=== PATIENT | female | born 1960 | race Caucasian/White ===

== ENCOUNTER 2017-11-08 21:43 | Inpatient (IN) | payer OTHER ==
[~2017-11-08] VITALS: Ht 165.1 cm; Wt 105.2 kg
--- NOTE | 2017-11-08 21:47 | ED SYNCOPE COMPLAINT ---
History of Present Illness General Chief Complaint: Syncope and Near-Syncope Stated Complaint: BIBA SYNCOPE Source: patient, family, EMS Exam Limitations: no limitations Vital Signs & Intake/Output Vital Signs & Intake/Output Vital Signs Date Time Temp Pulse Resp B/P B/P Pulse O2 O2 Flow FiO2 Mean Ox Delivery Rate 11/084 Room Air 11/08 2200 97.8 70 20 109/55 97 Room Air ED Intake and Output 11/09 0000 11/08 1200 Intake Total Output Total Balance Patient 240 lb Weight Weight Reported by Patient Measurement Method Allergies Coded Allergies: No Known Allergies (11/08/17) Reconcile Medications Atorvastatin Calcium 40 MG TABLET 1 TAB PO DAILY HLD (Reported) Desvenlafaxine Succinate (Pristiq ER) 50 MG TAB.ER.24H 1 TAB PO DAILY DEPRESSION (Reported) Pantoprazole Sodium 40 MG TABLET.DR 1 TAB PO DAILY GERD (Reported) Ranitidine (Ranitidine HCl) 150 MG TABLET 1 TAB PO BID GERD (Reported) Triage Nurses Notes Reviewed? yes Timing: recent history Precipitating Factors: "My period has been really heavy... started yesterday" Context: sitting on sofa Episode Description: see below Loss of Consciousness: brief (seconds) Associated Symptoms: dizziness, nausea/vomiting, weakness : No Patient currently breastfeeds: No HPI: 57 yo woman in prior good health presents with syncope. Per her , "we were sitting on the sofa and she just passed out." She did not stop breathing. No cyanosis. The event lasted a few minutes. He called 911. She notes that she had a period start last night, "I am having a heavy period... clots are coming out." 911 called. When the ems crew went to have her stand, she became pale and briefly syncoped. SBP 120's in the field. She has no recollection of the first syncopal event. She does not recall feeling dizzy, chest pain, palpitations, dyspnea. She reports no pain and is otherwise well. Past History Travel History Traveled to [place] past 21 day No Medical History Any Pertinent Medical History? see below for history Surgical History Surgical History: none Family History Hx Contributory? No Review of Systems Review of Systems Constitutional: Reports: no symptoms. EENTM: Reports: no symptoms. Respiratory: Reports: no symptoms. Cardiovascular: Reports: no symptoms. GI: Reports: no symptoms. Genitourinary: Reports: no symptoms. Musculoskeletal: Reports: no symptoms. Skin: Reports: no symptoms. Neurological/Psychological: Reports: no symptoms. All Other Systems: Reviewed and Negative Physical Exam Physical Exam General Appearance: well developed/nourished, no apparent distress Head: atraumatic, normal appearance Eyes: Bilateral: normal appearance. Ears, Nose, Throat: normal pharynx, normal ENT inspection Neck: normal inspection, supple, full range of motion Respiratory: normal breath sounds, chest non-tender, no respiratory distress, quiet respiration, lungs clear Cardiovascular: regular rate/rhythm Gastrointestinal: normal bowel sounds, soft, non-tender Back: normal inspection Extremities: normal inspection Psychiatric: awake, alert, oriented x 3 Cranial Nerves: normal hearing, normal speech Skin: intact, normal color, warm/dry Core Measures ACS in differential dx? No CVA/TIA Diagnosis: No Sepsis Present: No Sepsis Focused Exam Completed? No Progress Differential Diagnosis: vasodepressor syncope, anemia vs other. Plan of Care: Orders Procedure Date/time Status Nothing by Mouth 11/09 B Active Patient Data 11/08 2328 Active Saline Lock 11/09 2319 Active Misc Message 11/09 2319 Active ED Holding Orders 11/09 2319 Active Admit to inpatient 11/09 2319 Active Vital Signs 11/09 2319 Active Code Status 11/09 2319 Active Intake & Output 11/08 2233 Active TROPONIN LEVEL 11/08 2146 Complete PARTIAL THROMBOPLASTIN TIME 11/08 2146 Complete PROTHROMBIN TIME 11/08 2146 Complete LIPASE 11/08 2146 Complete HEPATIC FUNCTION PANEL 11/08 2146 Complete CBC WITHOUT DIFFERENTIAL 11/08 2146 Complete BASIC METABOLIC PANEL 11/08 2146 Complete AMYLASE 11/08 2146 Complete EKG 11/08 2146 Active TYPE & SCREEN (NOT X-MATCH) 11/08 2146 Complete Laboratory Tests 11/08/172158: Anion Gap 10, Estimated GFR > 60, BUN/Creatinine Ratio 21.7, Glucose 125 H, Calcium 9.0, Total Bilirubin 0.3, Direct Bilirubin 0.2, AST 27, ALT 35, Alkaline Phosphatase 109, Troponin I < 0.01, Total Protein 6.1 L, Albumin 3.5, Amylase 107, Lipase 218, PT 12.1, INR 1.11, APTT 27, CBC w Diff NO MAN DIFF REQ, RBC 4.30, MCV 86.4, MCH 27.9, MCHC 32.3 L, RDW 14.8 H, MPV 10.1, Gran % 60.9, Lymphocytes % 32.5, Monocytes % 5.5, Eosinophils % 0.7, Basophils % 0.4, Absolute Granulocytes 5.9, Absolute Lymphocytes 3.1, Absolute Monocytes 0.5, Absolute Eosinophils 0.1, Absolute Basophils 0 Diagnostic Imaging: Viewed by Me: Radiology Read, CT Scan. Discussed w/RAD: Radiology Read, CT Scan. Radiology Impression: PATIENT: JEFF DEAN PRESENT AGE: 57 PATIENT ACCOUNT NO: [id number] : 62 LOCATION: ER ORDERING PHYSICIAN: Arnoldo Loomis MD SERVICE DATE: 11/08/17 EXAM TYPE: CAT - CT HEAD WO IV CONTRAST EXAMINATION: CT HEAD WITHOUT CONTRAST CLINICAL INFORMATION: Mental status change. COMPARISON: None TECHNIQUE: Contiguous axial imaging was performed from the skull base to vertex without intravenous administration of contrast. DLP: 633 mGy-cm FINDINGS: There is no evidence of acute intracranial hemorrhage or territorial infarction. No abnormal mass effect or midline shift is seen. Waters to white matter differentiation is well preserved. No extra-axial fluid collections are identified. The ventricles are normal in size. There is no significant abnormal attenuation within the brain parenchyma. The osseous structures and soft tissues demonstrate no acute abnormalities. The mastoid air cells and visualized portions of the paranasal sinuses are well aerated. IMPRESSION: No acute intracranial pathology. No CT explanation for the patient's mental status change. DICTATED BY: Chino Hernandez MD DATE/TIME DICTATED:11/08/172234 BACON SKIN LIFTER:KRISSY DATE/TIME TRANSCRIBED:11/08/172234 CONFIDENTIAL, DO NOT COPY WITHOUT APPROPRIATE AUTHORIZATION. <Electronically signed in Other Vendor System> SIGNED BY: Chino Hernandez MD 11/08/172241 CXR Impression: PATIENT: JEFF DEAN PRESENT AGE: 57 PATIENT ACCOUNT NO: [id number] : 62 LOCATION: [facility] ORDERING PHYSICIAN: Arnoldo Loomis MD SERVICE DATE: 11/08/17 EXAM TYPE: RAD - XRY-PORTABLE CHEST XRAY EXAMINATION: XR PORTABLE CHEST CLINICAL INFORMATION: Chest pain COMPARISON: None TECHNIQUE: Portable frontal view of the chest was obtained. FINDINGS: No significant abnormality is noted involving the heart, lungs, mediastinum, bony thorax or soft tissues. IMPRESSION: No acute pulmonary disease. DICTATED BY: Dieter Cheng MD DATE/TIME DICTATED:11/08/172246 BACON SKIN LIFTER:KRISSY DATE/TIME TRANSCRIBED:11/08/172246 CONFIDENTIAL, DO NOT COPY WITHOUT APPROPRIATE AUTHORIZATION. <Electronically signed in Other Vendor System> SIGNED BY: Dieter Cheng MD 11/08/17 3776 Initial ED EKG: nsr, no acute changes. Departure Departure Disposition: STILL A PATIENT Condition: Stable Clinical Impression Primary Impression: Syncope Referrals: Joshua Sharma MD (PCP/Family) Departure Forms: Customer Survey General Discharge Information Comments 11/08/17, 23:14... discussed with dr. mtz (cards)... pt with syncope of uncertain etiology, merits admission, monitoring, serial ekg, cards eval. Admission Note Spoke With: Caitie Leo MD Documentation of Exam: Documentation of any treatments & extenuating circumstances including Concerns Regarding Discharge (functional status, medication knowledge or non-compliance, living conditions, etc.) that warrant an admission rather than observation: pt with syncope of uncertain etiology, also with orthostasis, without compensatory pulse increase. pt merits monitoring, iv fluids, serial trop/ekg, cards eval... pt would also benefit from supervisor partial denture department eval for vaginal bleeding.
[2017-11-08 22:09] LABS: ABSOLUTE BASOPHIL COUNT 0 /CUMM (0.0-0.2); ABSOLUTE EOSINOPHIL COUNT 0.1 /CUMM (0.0-0.7); ABSOLUTE GRANULOCYTE CT 5.9 /CUMM (1.4-6.5); ABSOLUTE LYMPH COUNT 3.1 /CUMM (1.2-3.4); ABSOLUTE MONOCYTE COUNT 0.5 /CUMM (0.10-0.60); BASOPHIL % 0.4 % (0.0-2.0); EOSINOPHIL % 0.7 % (0-5); GRANULOCYTE % 60.9 % (42.2-75.2); HEMATOCRIT 37.1 % (37-47); MEAN CORPUSCULAR HGB 27.9 PG (27.0-31.0); MEAN CORPUSCULAR HGB CONC 32.3 G/DL (33.0-37.0); MEAN CORPUSCULAR VOLUME 86.4 FL (81.0-99.0); MEAN PLATELET VOLUME 10.1 FL (7.4-10.4); PLATELET COUNT 177 /CUMM (130-400); RBC DISTRIBUTION WIDTH 14.8 % (11.5-14.5); WHITE BLOOD CELL COUNT 9.6 /CUMM (4.8-10.8)
[2017-11-08 22:22] LABS: PT 12.1 SEC (9.4-12.5); PTT 27 SEC (25-37)
--- NOTE | 2017-11-08 22:42 | CT SCAN REPORT ---
EXAMINATION: CT HEAD WITHOUT CONTRAST CLINICAL INFORMATION: Mental status change. COMPARISON: None TECHNIQUE: Contiguous axial imaging was performed from the skull base to vertex without intravenous administration of contrast. DLP: 633 mGy-cm FINDINGS: There is no evidence of acute intracranial hemorrhage or territorial infarction. No abnormal mass effect or midline shift is seen. Waters to white matter differentiation is well preserved. No extra-axial fluid collections are identified. The ventricles are normal in size. There is no significant abnormal attenuation within the brain parenchyma. The osseous structures and soft tissues demonstrate no acute abnormalities. The mastoid air cells and visualized portions of the paranasal sinuses are well aerated. IMPRESSION: No acute intracranial pathology. No CT explanation for the patient's mental status change.
--- NOTE | 2017-11-08 22:51 | RADIOLOGY REPORT ---
EXAMINATION: XR PORTABLE CHEST CLINICAL INFORMATION: Chest pain COMPARISON: None TECHNIQUE: Portable frontal view of the chest was obtained. FINDINGS: No significant abnormality is noted involving the heart, lungs, mediastinum, bony thorax or soft tissues. IMPRESSION: No acute pulmonary disease.
[2017-11-09] MEDS ORDERED: ATORVASTATIN CA40 M1 PO (00:30)
[2017-11-09] MEDS ORDERED: PANTOPRAZOLE SO40 M1 PO (00:30)
[2017-11-09] MEDS ORDERED: PRISTIQ ER50 MG PO (00:34)
[2017-11-09] MEDS ORDERED: RANITIDINE HCL150 MG PO (00:35)
[2017-11-09 01:07] LABS: ABSOLUTE BASOPHIL COUNT 0 /CUMM (0.0-0.2); ABSOLUTE EOSINOPHIL COUNT 0 /CUMM (0.0-0.7); ABSOLUTE GRANULOCYTE CT 10.3 /CUMM (1.4-6.5); ABSOLUTE LYMPH COUNT 1.8 /CUMM (1.2-3.4); ABSOLUTE MONOCYTE COUNT 0.6 /CUMM (0.10-0.60); BASOPHIL % 0.3 % (0.0-2.0); EOSINOPHIL % 0.1 % (0-5); GRANULOCYTE % 80.6 % (42.2-75.2); HEMATOCRIT 32.8 % (37-47); MEAN CORPUSCULAR HGB 28.3 PG (27.0-31.0); MEAN CORPUSCULAR HGB CONC 32.6 G/DL (33.0-37.0); MEAN CORPUSCULAR VOLUME 86.6 FL (81.0-99.0); MEAN PLATELET VOLUME 10.3 FL (7.4-10.4); PLATELET COUNT 162 /CUMM (130-400); RBC DISTRIBUTION WIDTH 14.3 % (11.5-14.5); RED BLOOD CELL CT 3.78 /CUMM (4.20-5.40); WHITE BLOOD CELL COUNT 12.8 /CUMM (4.8-10.8)
--- NOTE | 2017-11-09 02:59 | Admission Certification ---
Admission Certification Certification Statement - As attending physician, I certify that at the time of - admission, based on clinical presentation, severity of - symptoms, need for further diagnostic testing and - therapeutic interventions, and risk of adverse outcomes - without in-hospital treatment, in my clinical assessment, - this patient requires an acute hospital stay for a minimum - of two nights or longer. I have also considered psychsocial - factors such as support system, advanced age, financial - issues, cognitive issues, and failed out-patient treatments, - past re-admission history, safety of patient, and lack of - compliance as applicable. Specific rationale supporting this admission is: Syncope secondary to volume loss, acute iron deficiency anemia, vaginal bleeding
--- NOTE | 2017-11-09 03:16 | Cons- OBGYN ---
General Information and HPI Consulting Request Date of Consult: 11/09/17 Requested By: Catiie Leo MD Reason for Consult: Heavy vaginal bleeding Source of Information: patient Exam Limitations: no limitations History of Present Illness: 57-year-old, history of uterine fibroids, she was admitted for syncope episode. As per patient, she has regular menses,LMP yesterday, since yesterday she started to have heavy vaginal bleeding, gushing blood with clots, tonight she feels dizzy, sending by ambulance for evaluation. History of uterine fibroids, declined surgery, she was referred to [place] for treatment 2015, patient did not keep the appointment, she did not follow up with SPECIAL EDUCATION SCIENCE TEACHER either. Allergies/Medications Allergies: Coded Allergies: No Known Allergies (11/08/17) Home Med List: Atorvastatin Calcium 40 MG TABLET 1 TAB PO DAILY HLD (Reported) Desvenlafaxine Succinate (Pristiq ER) 50 MG TAB.ER.24H 1 TAB PO DAILY DEPRESSION (Reported) Docusate Sodium (Colace) 100 MG CAPSULE 1 CAP PO BID STOOL SOFTENER Ferrous Sulfate 325 MG (65 MG IRON) TABLET 1 TAB PO BID IRON LEVEL Ondansetron (Zofran Odt) 4 MG TAB.RAPDIS 1 TAB SL TID [place] . Pantoprazole Sodium 40 MG TABLET.DR 1 TAB PO DAILY GERD (Reported) Ranitidine (Ranitidine HCl) 150 MG TABLET 1 TAB PO BID GERD (Reported) Tranexamic Acid (Lysteda) 650 MG TABLET 2 TAB PO TID Bleeding Please continue for 4 days. Current Medications: Current Medications Sig/Arie Start time Last Medication Dose Route Stop Time Status Admin Acetaminophen 650 MG Q6P PRN 11/09 0030 AC PO Atorvastatin Calcium 40 MG 1700 11/09 1700 AC PO Hydrocodone Bitart/ 1 TAB Q6P PRN 11/09 0030 AC Acetaminophen PO Omeprazole 40 MG DAILY AC 11/09 0700 AC PO Ondansetron HCl 4 MG Q8P PRN 11/09 0030 AC IV Sodium Chloride 1,000 ML BOLUS ONE 11/09 0145 DC 11/09 IV 11/09 0244 0217 Sodium Chloride 1,000 ML Q10H 11/09 0045 AC 11/09 IV 0123 Sodium Chloride 1,000 ML BOLUS ONE 11/08 2200 DC 11/08 IV 11/08 2259 2237 Sodium Chloride 1,000 ML BOLUS ONE 11/08 2200 DC / IV 11/08 225 2300 Past History Medical History Neurological: NONE EENT: NONE Cardiovascular: hypertension, hyperlipidemia Respiratory: NONE Gastrointestinal: NONE Hepatic: NONE Renal: NONE Musculoskeletal: NONE Psychiatric: NONE Endocrine: NONE Blood Disorders: anemia Cancer(s): NONE SPECIAL EDUCATION SCIENCE TEACHER/Reproductive: fibroid Other Medical Hx: fatty liver Surgical History Pertinent Surgical History: cholecystectomy, , 1 Psychosocial History Where Do You Live? Home ETOH Use: denies use Illicit Drug Use: denies illicit drug use Review of Systems Review of Systems Constitutional: Reports: no symptoms. EENTM: Reports: no symptoms. Cardiovascular: Reports: syncope. Respiratory: Reports: no symptoms. GI: Reports: no symptoms. Genitourinary: Reports: see HPI. All Other Systems: Reviewed and Negative Exam & Diagnostic Data Vital Signs and I&O Vital Signs Date Time Temp Pulse Resp B/P B/P Pulse O2 O2 Flow FiO2 Mean Ox Delivery Rate 11/09 0123 82 86/54 11/08 2234 Room Air 11/08 2200 36.6 70 20 109/55 97 Room Air Intake & Output 11/09 0800 / 0000 /06 1600 05/06 0800 05/06 0000 05/05 1600 Intake Total 3000 Output Total 600 Balance 2400 Intake, IV 3000 Output, Urine 600 Patient 108.862 kg Weight Weight Reported by Patient Measurement Method Physical Exam: VSS General: NAD CV RRR Lungs CTA B/L Abdomen: soft, nontender. Ext: DCT (-) Assessment/Plan Assessment/Plan 57 yo, syncope , abnormal uterine bleeding, uterine fibroid 1.H/H stable, in light of menorrhagia, D+C for endometrial sampling and treatment for bleeding d/w pt, she understand and agreed. R/B/A of dilation and currettage d/w pt, she understand. all questions answered. informed consent obtained. 2. prepare for OR, OR team called 3. pt admitted for observation by medicine team. Problem List: 1. Abnormal uterine bleeding 2. Syncope 3. Fibroids Copies To: Darby Lassiter MD Consult Acknowledgment - Thank you for your consult request. Attending Review Statement Attending Statement Attending MD Statement: examined this patient, discussed w/nursing
--- NOTE | 2017-11-09 05:02 | Operative Report ---
Operative/Inv Procedure Report Surgery Date: 11/09/17 Name of Procedure: Dilation and curettage Pre-Operative Diagnosis: Abnormal uterine bleeding Post-Operative Diagnosis: Same Estimated Blood Loss: 50ml to 100ml Surgeon/Commercial Collections Driver: darby Lassiter MD Anesthesia: moderate sedation IV Fluids: Lactated Ringer's Urine Output: Straight cath 100 mL clear urine at the beginning of the procedure Specimens: EMC Complications: None Condition: Stable Operative Indication: 57-year-old, admitted for syncope episode, found to have heavy vaginal bleeding for 2 days. Operative/Procedure Note Note: The patient was taken to the operating room where moderate sedation anesthesia was obtained without difficulty. The patient was then examined under anesthesia was found to have a largely anteverted uterus. She was then placed in the dorsal lithotomy position and prepared and draped in the usual sterile fashion. A bivalve speculum was then placed in the patient's vagina and the anterior lip of the cervix grasped with the single-toothed tenaculum. The uterus was then gently sounded to 8 cm, the cervix was dilated to accommodate a small sized sharp curetting. A sharp curettage was then performed until a gritty texture was noted. There was minimal bleeding noted and the tenaculum removed with good hemostasis noted. All the instruments withdrawn from the patient's vagina. All instruments and laps counts were correct. tolerated the procedure well. The patient was then taken to the recovery room in stable condition. Findings: enlarged uterus with multiple fibroids. CC: Darby Lassiter MD
--- NOTE | 2017-11-09 05:58 | Event Note ---
Event Note Event Note: p.t came back from the OR TO ICU for post-op recovary around 5:40 Am and her BP 80s over doppler, we will keep her in the ICU for close monitoring and we increased IV fluid to 200cc/hr and will start IVF bolus if needed. she is awake, alert, oriented X3. clot which is not her usual, patient stated that she had to change her pads more frequent than usual she cannot remember how many time exactly but she stated that it's too many. Today she was sitting on couch when she became almost unconscious. EMS was called immediately, by the time patient regained her consciousness. They asked her if she could walk to ambulance when she passed out again. She reports feeling dizzy, nausea she denied vomiting, blurry vision or heart racing before passing out. She stated that after she regained her consciousness she still felt dizzy and nauseous, and she reports heart racing without chest pain or difficulty breathing. Her last menstrual period was 6 week back, lasted for 2 weeks. She is going through perimenopause. She stated that her BP always runs low(80s -90s SBP) and sometimes it is difficult to measure her BP when she follow up with her nurse clinician or primary care and because of that her HTN medication was stopped. In the emergency department patient found to be orthostatic positive she received 2 L of normal saline, on pelvic vaginal exam large amount of blood and clot noted. GOLF BALL COVER TREATER was contacted stat came to the ED and she evaluate her and recommend D&C to be done immediately to help controlling the vaginal bleeding Problem list: -Acute blood loss anemia due to significant vaginal bleeding -Syncopal episode due to orthostatic hypotension secondary to above. Plan: -Admit patient to telemetry floor -Vitals every shift, continuous blood pressure monitoring -Type and crossmatch -Continue IV fluid hydration to congestive pressure above 90. -Keep patient nothing by mouth -GOLF BALL COVER TREATER consulted patient will undergo D&C -CBC every 8hr if she cont to bleed and keep hemoglobin above 8 -Check orthostatics in a.m. -Continue home medication -Pain pathway -DVT prophylaxis: Alps -Full code p.t came back from the OR around 5:40 Am and her BP 80s over doppler, we will keep her in the ICU for close monitoring and we increased IV fluid to 200cc /hr and will start IVF bolus if needed. she is awake, alert, oriented X3.
--- NOTE | 2017-11-09 07:15 | History & Physical ---
Timothy Vargas MD 11/09/17 0715: General Information and HPI Source of Information: patient Exam Limitations: no limitations History of Present Illness: Patient is a 57-year-old female with past medical history significant for menorrhagia and uterine fibroids, hypertension, hyperlipidemia, GERD, depression , fatty liver disease, presenting this admission with chief complaint of syncope. Patient reports that she started having her period one day prior to admission. Reports that she has had profuse bleeding and clotting requiring multiple pads at a time and requiring her to change her pads close to every hour. Patient reports that she has heavy menses however this is much worse. Patient states that her last. Was 6 weeks ago and lasted approximately 2 weeks. Patient reports along with the heavy bleeding she has had severe abdominal cramps. Due to these cramps she states that she has had a poor appetite and has only had yogurt, ice cream, popcorn for the entire day. Patient reports that this evening she was giving her son his Humira shot after which she felt dizzy and thought that she was having an anxiety attack. Patient states that her son told her she was quite lethargic at that time and was not responding. Patient reports feeling dizzy and nauseous at which point she felt as though she was going to pass out and instructed her son to call 911. Patient states that after that she remembers seeing EMS who had asked her if she was able to get up to walk out to the ambulance. At that point she stood up however felt dizzy and sat back down and subsequently passed out. Patient denies any chest pain or palpitations prior to passing out however did experience dizziness and warmth. Patient reports that she has had similar episode in the past when she had diarrhea and was taking Lasix. Patient is no longer on Lasix and is currently not on any antihypertensive medications as her blood pressure has been burning on the lower side. Patient reports that she has a history of uterine fibroids for which she has seen a farrowing worker and had an ultrasound showing multiple uterine fibroids of varying sizes. States that she was given a medication to help however it caused her to vomit and so she subsequently throughout the medication. Patient reports having hot flashes before her periods. Reports that she is going through perimenopause. Patient also reports that she has had D&Cs in the past due to heavy bleeding. At this point a hysterectomy was held off as patient states that she is close to menopause and was told that her fibroids would improve after menopause. Allergies/Medications Allergies: Coded Allergies: No Known Allergies (11/08/17) Home Med list Atorvastatin Calcium 40 MG TABLET 1 TAB PO DAILY HLD (Reported) Desvenlafaxine Succinate (Pristiq ER) 50 MG TAB.ER.24H 1 TAB PO DAILY DEPRESSION (Reported) Docusate Sodium (Colace) 100 MG CAPSULE 1 CAP PO BID STOOL SOFTENER Ferrous Sulfate 325 MG (65 MG IRON) TABLET 1 TAB PO BID IRON LEVEL Ondansetron (Zofran Odt) 4 MG TAB.RAPDIS 1 TAB SL TID [place] . Pantoprazole Sodium 40 MG TABLET.DR 1 TAB PO DAILY GERD (Reported) Ranitidine (Ranitidine HCl) 150 MG TABLET 1 TAB PO BID GERD (Reported) Tranexamic Acid (Lysteda) 650 MG TABLET 2 TAB PO TID Bleeding Please continue for 4 days. Past History Travel History Traveled to [place] past 21 day No Medical History Blood Transfusion Hx: No Neurological: NONE EENT: NONE Cardiovascular: hypertension, hyperlipidemia Respiratory: NONE Gastrointestinal: GERD Hepatic: FATTY LIVER Renal: NONE Musculoskeletal: NONE Psychiatric: anxiety, depression Endocrine: NONE Blood Disorders: anemia Cancer(s): NONE LIPCOAT SPRAYER/Reproductive: fibroid Other Medical Hx: fatty liver History of MRSA: No History of VRE: No History of CDIFF: No Surgical History Surgical History: none, cholecystectomy, Past Family/Social History Psychosocial History Where do you live? Home Smoking Status: Former Smoker ETOH Use: denies use Illicit Drug Use: denies illicit drug use Review of Systems Review of Systems Constitutional: Reports: see HPI. EENTM: Reports: see HPI. Cardiovascular: Reports: see HPI. Respiratory: Reports: no symptoms. GI: Reports: see HPI. Genitourinary: Reports: no symptoms. Musculoskeletal: Reports: no symptoms. Skin: Reports: no symptoms. Neurological/Psychological: Reports: see HPI. Hematologic/Endocrine: Reports: see HPI. Immunologic/Allergic: Reports: no symptoms. Exam & Diagnostic Data Last 24 Hrs of Vital Signs/I&O Vital Signs Date Time Temp Pulse Resp B/P B/P Pulse O2 O2 Flow FiO2 Mean Ox Delivery Rate 11/09 0327 98.6 82 16 102/56 100 Room Air 11/09 0123 82 86/54 11/09 0012 98.2 88 18 82/57 99 Room Air 11/08 2234 Room Air 11/08 2200 97.8 70 20 109/55 97 Room Air Intake & Output 11/09 0800 11/09 0000 11/08 1600 Intake Total 3000 Output Total 600 Balance 2400 Intake, IV 3000 Output, Urine 600 Patient 250 lb 240 lb Weight Weight Reported by Patient Measurement Method Physical Exam General Appearance Alert, Oriented X3, Cooperative, No Acute Distress Skin No Rashes Skin Temp/Moisture Exam: Warm/Dry Sepsis Skin Exam (color): Normal for Ethnicity HEENT Atraumatic, PERRLA, EOMI, Mucous Membr. moist/pink Cardiovascular Regular Rate, Normal S1, Normal S2 Lungs Clear to Auscultation, Normal Air Movement Abdomen Normal Bowel Sounds, Soft, No Tenderness Neurological Normal Speech, Strength at 5/5 X4 Ext, Normal Tone, Sensation Intact, Cranial Nerves 3-12 NL, Reflexes 2+ Extremities No Clubbing, No Cyanosis, No Edema, Normal Pulses, No Tenderness/ Swelling Vascular Normal Pulses, Pulses Symmetrical Reproductive (FEMALE) Normal female genitalia, extensive bleeding and clotting on speculum exam seen in the vaginal canal Pelvic (FEMALE) Appearance Normal, No Cervical Tenderness, clotting and bleeding Last 24 Hrs of Labs/Kory: Laboratory Tests 11/09/17 0545: Anion Gap 4 L, Estimated GFR > 60, BUN/Creatinine Ratio 18.0, CBC w Diff Pending, WBC Pending, RBC Pending, Hgb Pending, Hct Pending, MCV Pending, MCH Pending, MCHC Pending, RDW Pending, Plt Count Pending, MPV Pending 11/09/17 0321: Troponin I < 0.01 11/09/17 0053: CBC w Diff NO MAN DIFF REQ, RBC 3.78 L, MCV 86.6, MCH 28.3, MCHC 32.6 L, RDW 14.3, MPV 10.3, Gran % 80.6 H, Lymphocytes % 14.0 L, Monocytes % 5.0, Eosinophils % 0.1, Basophils % 0.3, Absolute Granulocytes 10.3 H, Absolute Lymphocytes 1.8, Absolute Monocytes 0.6, Absolute Eosinophils 0, Absolute Basophils 0 11/08/17 2159: Anion Gap 10, Estimated GFR > 60, BUN/Creatinine Ratio 21.7, Glucose 125 H, Lactic Acid 1.8, Calcium 9.0, Phosphorus 3.1, Magnesium 1.8, Iron 76, TIBC 324, Ferritin 7.7 L, Total Bilirubin 0.3, Direct Bilirubin 0.2, AST 27, ALT 35, Alkaline Phosphatase 109, Troponin I < 0.01, Total Protein 6.1 L, Albumin 3.5, Amylase 107, Lipase 218, Vitamin B12 654, Folate > 20.0 H, TSH 2.420, Free T4 0.81, Total Beta HCG NEGATIVE, PT 12.1, INR 1.11, APTT 27, CBC w Diff NO MAN DIFF REQ, RBC 4.30, MCV 86.4, MCH 27.9, MCHC 32.3 L, RDW 14.8 H, MPV 10.1, Gran % 60.9, Lymphocytes % 32.5, Monocytes % 5.5, Eosinophils % 0.7, Basophils % 0.4, Absolute Granulocytes 5.9, Absolute Lymphocytes 3.1, Absolute Monocytes 0.5 , Absolute Eosinophils 0.1, Absolute Basophils 0 Assessment/Plan Assessment: Patient is a 57-year-old female with past medical history significant for menorrhagia and uterine fibroids, hypertension, hyperlipidemia, GERD, depression , fatty liver disease, presenting this admission with chief complaint of syncope and vaginal bleeding. Patient will be admitted to telemetry for management of the followin. Acute blood loss anemia 2/2 Significant menorrhagia 2. Syncope likely secondary to above Plan: WARE CARRIER was consulted. Patient is currently undergoing D&C Admit to telemetry with continuous telemetry monitoring after D&C Repeat CBC in AM Type and screen Tranfuse for H/H<8 Continue maintenance fluids with IV NS @ 150cc/hr after 3rd bolus is completed Serial EKG and troponin Diet: NPO pending D&C Code: Full code DVT PPx: ALPS only in setting of acute blood loss As Ranked By This Provider Problem List: 1. Syncope 2. Abnormal uterine bleeding Core Measures/Misc (03/22) Acute Coronary Syndrome ACS Diagnosis: No Congestive Heart Failure Congestive Heart Failure Diagnosis No Cerebrovascular Accident CVA/TIA Diagnosis: No VTE (View Protocol) VTE Risk Factors Age>40 No Mechanical VTE Prophylaxis d/t N/A MechProphylax Ordered No VTE Pharm Prophylaxis d/t Bleeding (Active) Sepsis (View protocol) Sepsis Present: No Tayo Gee 11/09/17 0715: Resident Review Statement Resident Statement: examined this patient, discussed with internet marketing strategist, agreed with internet marketing strategist, discussed with family, reviewed EMR data (avail), discussed with nursing , discussed with case mgmt, reviewed images, amended to note Other Findings: This is 57-year-old female with medical history of hypertension not currently on medication(was on Lasix 6 years ago), hyperlipidemia, GERD, uterine fibroid, depression. Presented to the emergency department via EMS status post syncopal episode with loss of consciousness. Patient stated that she had her period started yesterday that is happily bleeding associated with numerous amount of clot which is not her usual, patient stated that she had to change her pads more frequent than usual she cannot remember how many time exactly but she stated that it's too many. Today she was sitting on couch when she became almost unconscious. EMS was called immediately, by the time patient regained her consciousness. They asked her if she could walk to ambulance when she passed out again. She reports feeling dizzy, nausea she denied vomiting, blurry vision or heart racing before passing out. She stated that after she regained her consciousness she still felt dizzy and nauseous, and she reports heart racing without chest pain or difficulty breathing. Her last menstrual period was 6 week back, lasted for 2 weeks. She is going through perimenopause. She stated that her BP always runs low(80s -90s SBP) and sometimes it is difficult to measure her BP when she follow up with her soap worker or primary care and because of that her HTN medication was stopped. In the emergency department patient found to be orthostatic positive she received 2 L of normal saline, on pelvic vaginal exam large amount of blood and clot noted. WARE CARRIER was contacted stat came to the ED and she evaluate her and recommend D&C to be done immediately to help controlling the vaginal bleeding Physical examination, lab and imaging as above. Problem list: -Acute blood loss anemia due to significant vaginal bleeding -Syncopal episode due to orthostatic hypotension secondary to above. Plan: -Admit patient to telemetry floor -Vitals every shift, continuous blood pressure monitoring -Type and crossmatch -Continue IV fluid hydration to congestive pressure above 90. -Keep patient nothing by mouth -WARE CARRIER consulted patient will undergo D&C -CBC every 8hr if she cont to bleed and keep hemoglobin above 8 -Check orthostatics in a.m. -Continue home medication -Pain pathway -DVT prophylaxis: Alps -Full code unconscious. EMS was called immediately, by the time patient regained her consciousness. They asked her if she could walk to ambulance when she passed out again. She reports feeling dizzy, nausea she denied vomiting, blurry vision or heart racing before passing out. She stated that after she regained her consciousness she still felt dizzy and nauseous, and she reports heart racing without chest pain or difficulty breathing. Her last menstrual period was 6 week back, lasted for 2 weeks. She is going through perimenopause. She stated that her BP always runs low(80s -90s SBP) and sometimes it is difficult to measure her BP when she follow up with her soap worker or primary care and because of that her HTN medication was stopped. In the emergency department patient found to be orthostatic positive she received 2 L of normal saline, on pelvic vaginal exam large amount of blood and clot noted. WARE CARRIER was contacted stat came to the ED and she evaluate her and recommend D&C to be done immediately to help controlling the vaginal bleeding Physical examination, lab and imaging as above. Problem list: -Acute blood loss anemia due to significant vaginal bleeding -Syncopal episode due to orthostatic hypotension secondary to above. Plan: -Admit patient to telemetry floor -Vitals every shift, continuous blood pressure monitoring -Type and crossmatch -Continue IV fluid hydration to congestive pressure above 90. -Keep patient nothing by mouth -WARE CARRIER consulted patient will undergo D&C -CBC every 8hr if she cont to bleed and keep hemoglobin above 8 -Check orthostatics in a.m. -Continue home medication -Pain pathway -DVT prophylaxis: Alps -Full code
[2017-11-09 08:14] LABS: ABSOLUTE BASOPHIL COUNT 0 /CUMM (0.0-0.2); ABSOLUTE EOSINOPHIL COUNT 0 /CUMM (0.0-0.7); ABSOLUTE MONOCYTE COUNT 0.5 /CUMM (0.10-0.60); BASOPHIL % 0.4 % (0.0-2.0); EOSINOPHIL % 0.3 % (0-5); GRANULOCYTE % 69.4 % (42.2-75.2); HEMATOCRIT 28.7 % (37-47); MEAN CORPUSCULAR HGB 28.3 PG (27.0-31.0); MEAN CORPUSCULAR HGB CONC 32.6 G/DL (33.0-37.0); MEAN CORPUSCULAR VOLUME 86.8 FL (81.0-99.0); MEAN PLATELET VOLUME 11.3 FL (7.4-10.4); PLATELET COUNT 142 /CUMM (130-400); RBC DISTRIBUTION WIDTH 14.3 % (11.5-14.5); RED BLOOD CELL CT 3.31 /CUMM (4.20-5.40); WHITE BLOOD CELL COUNT 8.6 /CUMM (4.8-10.8)
--- NOTE | 2017-11-09 08:35 | PN- Housestaff ---
Janna ROMO,[facility] 11/09/17 0835: Subjective Follow-up For: 1. Acute blood loss anemia 2/2 Significant menorrhagia 2. Syncope likely secondary to above Tele-Events Since Last Visit: Sinus Rhythm No overnight events Subjective: Patient resting comfortably in bed, systolic blood pressure in 70s but does not have any chest pain, palpitations, lightheadedness, dizziness or SOB. Continues to have Vaginal Bleeding but much less than before. No abdominal Pain, but reoprts cramps. Review of Systems Constitutional: Reports: no symptoms. EENTM: Reports: no symptoms. Cardiovascular: Reports: no symptoms. Respiratory: Reports: no symptoms. Gastrointestinal: Reports: no symptoms. Genitourinary: Reports: no symptoms. Musculoskeletal: Reports: no symptoms. Skin: Reports: no symptoms. Neurological/Psychological: Reports: no symptoms. Hematologic/Endocrine: Reports: no symptoms. Immunologic/Allergic: Reports: no symptoms. Objective Last 24 Hrs of Vital Signs/I&O Vital Signs Date Time Temp Pulse Resp B/P B/P Pulse O2 O2 Flow FiO2 Mean Ox Delivery Rate 11/09 1138 100 Room Air 11/09 0327 98.6 82 16 102/56 100 Room Air 11/09 0123 82 86/54 11/09 0012 98.2 88 18 82/57 99 Room Air 11/08 2234 Room Air 11/08 2200 97.8 70 20 109/55 97 Room Air Intake & Output 11/09 1600 11/09 0800 11/09 0000 Intake Total 3000 Output Total 600 Balance 2400 Intake, IV 3000 Output, Urine 600 Patient 262 lb 250 lb 240 lb Weight Weight Bed scale Reported by Patient Measurement Method Physical Exam General Appearance: Alert, Oriented X3, Cooperative, No Acute Distress Skin: No Rashes, No Breakdown HEENT: Atraumatic, PERRLA, EOMI Cardiovascular: Regular Rate, Normal S1, Normal S2 Lungs: Clear to Auscultation, Normal Air Movement Abdomen: Normal Bowel Sounds, Soft, No Tenderness Extremities: No Clubbing, No Cyanosis, trace pedal edema bilaterally Current Medications: Current Medications Sig/Arie Start time Last Medication Dose Route Stop Time Status Admin Acetaminophen 650 MG Q6P PRN 11/09 0030 AC PO Atorvastatin Calcium 40 MG 1700 11/09 1700 AC PO Chlorhexidine 0 .STK-MED ONE 11/09 800 DC Gluconate TOP 11/09 801 Fentanyl Citrate 100 MCG .STK-MED ONE 11/09 342 DC IM 11/09 034 Heparin Sodium 5,000 UNIT Q8 11/09 1446 AC (Porcine) SC Hydrocodone Bitart/ 1 TAB Q6P PRN 11/09 0030 AC Acetaminophen PO Methylergonovine 0.2 MG .STK-MED ONE 11/09 800 DC Maleate IM 11/09 08 Midazolam HCl 2 MG .STK-MED ONE 11/09 342 DC IM 11/09 034 Omeprazole 40 MG DAILY AC 11/09 0700 AC 11/09 PO 1122 Ondansetron HCl 4 MG Q8P PRN 11/09 0030 AC IV Sodium Chloride 500 ML BOLUS ONE 11/09 0645 DC 11/09 IV 11/09 0744 0727 Sodium Chloride 1,000 ML BOLUS ONE 11/09 0145 DC 11/09 IV 11/09 0244 0217 Sodium Chloride 1,000 ML Q10H 11/09 0045 AC 11/09 IV 1123 Sodium Chloride 1,000 ML BOLUS ONE 11/08 2200 DC 05 IV 11/08 2259 2237 Sodium Chloride 1,000 ML BOLUS ONE 11/08 2200 DC 05/ IV / 2259 2300 Tranexamic Acid 1,000 MG TID 11/09 2100 AC IV Tranexamic Acid 1,000 MG TIDPRN PRN 11/09 1045 DC 11/09 IV 1250 Last 24 Hrs of Lab/Kory Results Last 24 Hrs of Labs/Mics: Laboratory Tests 11/09/17 1100: Troponin I < 0.01, CBC w Diff NO MAN DIFF REQ, RBC 3.18 L, MCV 86.7, MCH 28.0, MCHC 32.3 L, RDW 14.5, MPV 10.1, Gran % 68.9, Lymphocytes % 24.5, Monocytes % 6.0, Eosinophils % 0.3, Basophils % 0.3, Absolute Granulocytes 5.7, Absolute Lymphocytes 2.0, Absolute Monocytes 0.5, Absolute Eosinophils 0, Absolute Basophils 0 11/09/17 0545: Anion Gap 4 L, Estimated GFR > 60, BUN/Creatinine Ratio 18.0, CBC w Diff NO MAN DIFF REQ, RBC 3.31 L, MCV 86.8, MCH 28.3, MCHC 32.6 L, RDW 14.3, MPV 11.3 H, Gran % 69.4, Lymphocytes % 23.7, Monocytes % 6.2, Eosinophils % 0.3, Basophils % 0.4, Absolute Granulocytes 6.0, Absolute Lymphocytes 2.0, Absolute Monocytes 0.5 , Absolute Eosinophils 0, Absolute Basophils 0 11/09/17 0321: Troponin I < 0.01 11/09/17 0053: CBC w Diff NO MAN DIFF REQ, RBC 3.78 L, MCV 86.6, MCH 28.3, MCHC 32.6 L, RDW 14.3, MPV 10.3, Gran % 80.6 H, Lymphocytes % 14.0 L, Monocytes % 5.0, Eosinophils % 0.1, Basophils % 0.3, Absolute Granulocytes 10.3 H, Absolute Lymphocytes 1.8, Absolute Monocytes 0.6, Absolute Eosinophils 0, Absolute Basophils 0 11/08/17 7439: Anion Gap 10, Estimated GFR > 60, BUN/Creatinine Ratio 21.7, Glucose 125 H, Lactic Acid 1.8, Calcium 9.0, Phosphorus 3.1, Magnesium 1.8, Iron 76, TIBC 324, Ferritin 7.7 L, Total Bilirubin 0.3, Direct Bilirubin 0.2, AST 27, ALT 35, Alkaline Phosphatase 109, Troponin I < 0.01, Total Protein 6.1 L, Albumin 3.5, Amylase 107, Lipase 218, Vitamin B12 654, Folate > 20.0 H, TSH 2.420, Free T4 0.81, Total Beta HCG NEGATIVE, PT 12.1, INR 1.11, APTT 27, CBC w Diff NO MAN DIFF REQ, RBC 4.30, MCV 86.4, MCH 27.9, MCHC 32.3 L, RDW 14.8 H, MPV 10.1, Gran % 60.9, Lymphocytes % 32.5, Monocytes % 5.5, Eosinophils % 0.7, Basophils % 0.4, Absolute Granulocytes 5.9, Absolute Lymphocytes 3.1, Absolute Monocytes 0.5 , Absolute Eosinophils 0.1, Absolute Basophils 0 Assessment/Plan Assessment: Patient is a 57-year-old female with past medical history significant for menorrhagia and uterine fibroids, hypertension, hyperlipidemia, GERD, depression , fatty liver disease, presenting this admission with chief complaint of syncope and vaginal bleeding. Patient will be admitted to telemetry later transferred to ICU for management of the followin. Acute blood loss anemia 2/2 Significant menorrhagia s/p D&C 2. Syncope likely secondary to above 3. Hypotension 4. chronic medical conditions. Plan: - Continue continuous telemetry monitoring - Repeat CBC in AM , Tranfuse for H/H<8 - Tranexamic acid TID for bleeding - f/u Transvaginal US - APppreciate cook box filler recommendations. - Blood pressure improved with IV fluids with SBP in 80s. D/C IV fluids and continue to monitor vitals. - EKG and troponin x 3 negative. - Continue home medications including Atorvastatin and pantoprazole. Diet: NPO pending D&C Code: Full code DVT PPx: ALPS only in setting of acute blood loss Problem List: 1. Abnormal uterine bleeding 2. Syncope Pain Ratin Pain Location: NA Pain Goal: Remain pain free Pain Plan: Pain Pathway Tomorrow's Labs & Rationales: CBC ICU bundle Elliot Diez MD 11/09/171924: Attending MD Review Statement Attending Statement Attending MD Statement: examined this patient, discuss w/resident/PA/LABORER SHELLFISH PROCESSING, agreed w/resident/PA/LABORER SHELLFISH PROCESSING, reviewed EMR data (avail), discussed with nursing, reviewed images, amended to note Attending Assessment/Plan: The patient was seen and discussed with house staff. Transvaginal US shows multiple uterine fibroids. Hospital Aide follow-up appreciated. Patient considering arterial embolisation. Bleeding slowing in evening. Continue close follow-up of H/H, continue Tranexamic acid as per insulating machine operator.
[2017-11-09 11:29] LABS: ABSOLUTE BASOPHIL COUNT 0 /CUMM (0.0-0.2); ABSOLUTE EOSINOPHIL COUNT 0 /CUMM (0.0-0.7); ABSOLUTE GRANULOCYTE CT 5.7 /CUMM (1.4-6.5); ABSOLUTE MONOCYTE COUNT 0.5 /CUMM (0.10-0.60); BASOPHIL % 0.3 % (0.0-2.0); EOSINOPHIL % 0.3 % (0-5); GRANULOCYTE % 68.9 % (42.2-75.2); HEMATOCRIT 27.6 % (37-47); MEAN CORPUSCULAR HGB CONC 32.3 G/DL (33.0-37.0); MEAN CORPUSCULAR VOLUME 86.7 FL (81.0-99.0); MEAN PLATELET VOLUME 10.1 FL (7.4-10.4); PLATELET COUNT 145 /CUMM (130-400); RBC DISTRIBUTION WIDTH 14.5 % (11.5-14.5); RED BLOOD CELL CT 3.18 /CUMM (4.20-5.40); WHITE BLOOD CELL COUNT 8.2 /CUMM (4.8-10.8)
--- NOTE | 2017-11-09 13:40 | ULTRASOUND REPORT ---
EXAMINATION: US PELVIS CLINICAL INFORMATION: Uterine fibroids. Menorrhagia COMPARISON: MRI of the pelvis from 02/06/2016 TECHNIQUE: Transabdominal and transvaginal examination was performed. FINDINGS: LMP: 6-8 weeks ago. The uterus is anteverted and is measured at 17.0 x 10.6 x 9.1 cm. Cervical length is measured at 3.7 cm. The endometrium is measured at 2.2 cm in thickness without documented hypervascularity. There are a number of uterine fibroids documented. There is a left-sided fundal fibroid measured at 4.7 x 4.6 x 4.0 cm. A second left-sided fibroid is measured at 2.5 x 2.4 x 2.3 cm. A third left-sided fibroid is measured at 3.0 x 3.1 x 2.9 cm. A fourth fibroid in the lower uterine region is measured at 7.0 x 5.2 x 5.2 cm. Scanning in both adnexa demonstrated no masses. Neither uterus is visualized. IMPRESSION: Numerous uterine fibroids. Endometrial thickening measuring up to 2.2 cm. This may reflect endometrial hyperplasia, neoplasia, or polyp.
--- NOTE | 2017-11-09 15:20 | PN- OBGYN ---
Surgical Brief Attending Note Brief Attending Note: Pt s/p D&C this AM for menorrhagia, symptomatic anemia. Pt began to have heavy vaginal bleeding again, clots, soaking through a pad an hour. Started on tranexamic acid this afternoon. Pt feeling better. No ROSENTHAL / dizziness / sob. afeb, 80s, 90 - 100s / 50 - 60s NAD Abd soft nt obese, uterus palpable to just below umbilicus Danielle mod dark red vb on pad - last changed 4 hours ago Ext nt hgb 5/6 12 --> 5/7 10 --> 9 sono - enlarged fibroid uterus 17cm x 10cm x 9cm w/ multiple 2 - 5cm fibroids: em lining 2cm; ovaries obscured A/P 57yo perimenopausal woman w/ uterine leiomyoma, menorrhagia and symptomatic anemia. POD 0 s/p D&C. VB improving. HD stable. Continue tranexamic acid q 8 hr, monitor vb, check am cbc. Will f/u pathology. Medical and surgical options discussed with patient who is strongly considering [place] as outpt. Will cont to follow. Consult appreciated.
[2017-11-10 05:08] LABS: ABSOLUTE BASOPHIL COUNT 0 /CUMM (0.0-0.2); ABSOLUTE EOSINOPHIL COUNT 0.1 /CUMM (0.0-0.7); ABSOLUTE GRANULOCYTE CT 2.8 /CUMM (1.4-6.5); ABSOLUTE LYMPH COUNT 3.3 /CUMM (1.2-3.4); ABSOLUTE MONOCYTE COUNT 0.4 /CUMM (0.10-0.60); BASOPHIL % 0.6 % (0.0-2.0); GRANULOCYTE % 41.8 % (42.2-75.2); HEMATOCRIT 23.1 % (37-47); MEAN CORPUSCULAR HGB 28.4 PG (27.0-31.0); MEAN CORPUSCULAR HGB CONC 32.8 G/DL (33.0-37.0); MEAN CORPUSCULAR VOLUME 86.5 FL (81.0-99.0); MEAN PLATELET VOLUME 10.3 FL (7.4-10.4); PLATELET COUNT 139 /CUMM (130-400); RBC DISTRIBUTION WIDTH 14.7 % (11.5-14.5); RED BLOOD CELL CT 2.67 /CUMM (4.20-5.40); WHITE BLOOD CELL COUNT 6.8 /CUMM (4.8-10.8)
[2017-11-10 07:00] VITALS: BP 92/60
--- NOTE | 2017-11-10 07:27 | PN- Resident CRCU ---
See Addendum Subjective HPI/CRCU Issues: No issues overnight. Pt ok'ed by OBGYN to go home with outpatient follow up with Dr. Lassiter 24 Hour Events: Heart rate 7288 sinus rhythm Temperature: 98.09.7 Respiratory rate 1525 BP: 79/58 -> 98-112/60 I: 1760 O: 2150 Objective Vital Signs & I&O Last 8 Hrs of Vitals and I&O: Vital Signs Date Time Temp Pulse Resp B/P B/P Pulse O2 O2 Flow FiO2 Mean Ox Delivery Rate 11/11 799 95 Room Air 11/10 07 98.6 74 20 92/60 95 Room Air 11/10 0400 96 Room Air 11/10 0000 95 Room Air 11/10 0000 98.4 81 18 95 Room Air Intake & Output 11/10 1600 11/10 0800 / 0000 Intake Total 1090 100 120 Output Total 1800 Balance 1090 100 -1680 Intake, Blood 350 Product Intake, IV 140 Intake, Oral 600 100 120 Output, Urine 1800 Patient 232 lb Weight Weight Bed scale Measurement Method Laboratory Tests 11/10 11/09 0415 1800 Chemistry Sodium (137 - 145 mmol/L) 140 Potassium (3.5 - 5.1 mmol/L) 3.7 Chloride (98 - 107 mmol/L) 110 H Carbon Dioxide (22 - 30 mmol/L) 25 Anion Gap (5 - 16) 4 L BUN (7 - 17 mg/dL) 6 L Creatinine (0.5 - 1.0 mg/dL) 0.6 Estimated GFR (>60 ml/min) > 60 Glucose (65 - 99 mg/dL) 85 Calcium (8.4 - 10.2 mg/dL) 8.1 L Phosphorus (2.5 - 4.5 mg/dL) 2.5 Magnesium (1.6 - 2.3 mg/dL) 1.9 Total Bilirubin (0.2 - 1.3 mg/dL) 0.2 AST (14 - 36 U/L) 18 ALT (9 - 52 U/L) 33 Albumin (3.5 - 5.0 g/dL) 2.5 L Hematology CBC w Diff NO MAN DIFF REQ Cancelled WBC (4.8 - 10.8 /CUMM) 6.8 Cancelled RBC (4.20 - 5.40 /CUMM) 2.67 L Cancelled Hgb (12.0 - 16.0 G/DL) 7.6 L Cancelled Hct (37 - 47 %) 23.1 L Cancelled MCV (81.0 - 99.0 FL) 86.5 Cancelled MCH (27.0 - 31.0 PG) 28.4 Cancelled MCHC (33.0 - 37.0 G/DL) 32.8 L Cancelled RDW (11.5 - 14.5 %) 14.7 H Cancelled Plt Count (130 - 400 /CUMM) 139 Cancelled MPV (7.4 - 10.4 FL) 10.3 Cancelled Gran % (42.2 - 75.2 %) 41.8 L Lymphocytes % (20.5 - 51.1 %) 49.0 Monocytes % (1.7 - 9.3 %) 6.6 Eosinophils % (0 - 5 %) 2.0 Basophils % (0.0 - 2.0 %) 0.6 Absolute Granulocytes (1.4 - 6.5 /CUMM) 2.8 Absolute Lymphocytes (1.2 - 3.4 /CUMM) 3.3 Absolute Monocytes (0.10 - 0.60 /CUMM) 0.4 Absolute Eosinophils (0.0 - 0.7 /CUMM) 0.1 Absolute Basophils (0.0 - 0.2 /CUMM) 0 Intake & Output 11/10 1600 Intake Total 1090 Output Total Balance 1090 Intake, Blood 350 Product Intake, IV 140 Intake, Oral 600 Exam General Appearance: well developed/nourished, no apparent distress, alert, awake Respiratory: decreased breath sounds Cardiovascular: regular rate/rhythm, systolic murmur Gastrointestinal: normal bowel sounds, soft, non-tender Extremities: 1+ pitting edema Current Medications: Current Medications Sig/Arie Start time Last Medication Dose Route Stop Time Status Admin Acetaminophen 650 MG Q6P PRN 11/09 0030 DCD 11/09 PO 1517 Atorvastatin Calcium 40 MG 1700 11/09 1700 DCD 05 PO 1618 Desvenlafaxine 50 MG DAILY 11/09 1630 DCD 11/10 Succinate PO 0946 Heparin Sodium 5,000 UNIT Q8 11/09 1446 DCD 11/09 (Porcine) SC 1518 Hydrocodone Bitart/ 1 TAB Q6P PRN 11/09 0030 DCD Acetaminophen PO Magnesium Oxide 400 MG ONE ONE 11/10 0900 DC 11/10 PO 11/10 0901 0943 Omeprazole 40 MG DAILY AC 11/09 0700 DCD 11/10 PO 0609 Ondansetron HCl 4 MG ONCE ONE 11/10 1400 DC 05/ IV 11/10 1401 1448 Ondansetron HCl 4 MG Q8P PRN 11/09 0030 DCD 11/10 IV 1037 Potassium Chloride 40 MEQ ONCE ONE 11/10 0900 DC 05/ PO 11/10 0901 0946 Tranexamic Acid 1,000 MG TID 11/09 2100 DCD 05/ IV 1404 Impression/Plan Impression/Problem List Impression: 57-year-old female with past medical history significant for menorrhagia and uterine fibroids, hypertension, hyperlipidemia, GERD, depression, fatty liver disease, presenting this admission with chief complaint of syncope and vaginal bleeding s/p D+C. Patient was admitted to telemetry and transferred to ICU for management of the followin. Acute blood loss anemia 2/2 Significant menorrhagia s/p D&C 2. Syncope likely secondary to vaginal bleed 3. Hypotension 4. chronic medical conditions. Respiratory: No issues Infectious: No Issues Cardiac # Acute blood loss anemia 2/2 Significant menorrhagia s/p D&C US revealed multiple fibroids and endometrial thickening measuring up to 2.2 cm (may reflect endometrial hyperplasia, neoplasia, or polyp). She is s/p D+C yesterday. 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 CXR was negative for any cause of chest pain. Head Ct was negative #Hypotension BP improved after oral intake and transfusion Heme onc: No issues #hx of hld -cont atorvastatin OBGYN: Please refer to above regarding her acute blood loss anemia Metabolic: -repleted electrolytes as needed Alimentary: #Gerd -cont omeprazole Neuro: #mental health -cont pristiq Houskeeping: FULL CODE Regular diet Problem List: 1. Fibroids 2. Abnormal uterine bleeding 3. Syncope Pain Ratin Tomorrow's Labs & Rationales: none Plan DVT/Prophylaxis: heparin subq
[2017-11-10] MEDS ORDERED: LYSTEDA650 M1 PO ×2 (11:14→11:26)
[2017-11-10] MEDS ORDERED: ZOFRAN ODT4 M1 SL ×2 (11:14→11:26)
--- NOTE | 2017-11-10 11:22 | Patient Discharge Instructions ---
Discharge Instructions General Discharge Information You were seen/treated for: Vaginal Bleeding Syncope Special Instructions: Please follow up with Dr. Lassiter in 1 week. Please follow up with your pcp in 1 week. Acute Coronary Syndrome Inclusion Criteria At DC or during hospital stay patient has or had the following: ACS DIAGNOSIS No Discharge Core Measures Meds if any: Prescribed or Continued at Discharge Meds if any: NOT Prescribed or Continued at Discharge Congestive Heart Failure Inclusion Criteria At DC or during hospital stay patient has or had the following: CHF DIAGNOSIS No Discharge Core Measures Meds if any: Prescribed or Continued at Discharge Meds if any: NOT Prescribed or Continued at Discharge Cerebrovascular accident Inclusion Criteria At DC or during hospital stay patient has or had the following: CVA/TIA Diagnosis No Discharge Core Measures Meds if any: Prescribed or Continued at Discharge Meds if any: NOT Prescribed or Continued at Discharge Venous thromboembolism Inclusion Criteria VTE Diagnosis No VTE Type NONE VTE Confirmed by (Test) NONE Discharge Core Measures - Per Current guidelines, there needs to be overlap - treatment for the first 5 days of Warfarin therapy. - If discharged on Warfarin prior to 5 days of - overlap therapy, the patient will need to be - assessed for post discharge needs including - *Post discharge parental anticoagulation - *Warfarin and/or parental anticoagulation education - *Follow up date to check INR post discharge At least 5 days overlap therapy as Inpatient No Meds if any: Prescribed or Continued at Discharge Note: Overlap Therapy is Warfarin and Anticoagulant Meds if any: NOT Prescribed or Continued at Discharge
[2017-11-10] MEDS ORDERED: COLACE100 M1 PO (11:25)
[2017-11-10] MEDS ORDERED: FERROUS SULFAT325 M3 PO (11:25)
--- NOTE | 2017-11-10 11:29 | Discharge Summary ---
Visit Information Visit Dates Admission Date: 11/08/17 Discharge Date: 11/10/17 Hospital Course Course Attending Physician: Elliot Diez MD Primary Care Physician: Zachary ROMO,[facility] Hospital Course: Assessment: 57-year-old female with past medical history significant for menorrhagia and uterine fibroids, hypertension, hyperlipidemia, GERD, depression, fatty liver disease, presenting this admission with chief complaint of syncope and vaginal bleeding s/p D+C. Problems: # Acute blood loss anemia 2/2 Significant menorrhagia s/p D&C US revealed multiple fibroids and endometrial thickening measuring up to 2.2 cm (may reflect endometrial hyperplasia, neoplasia, or polyp). She underwent D+C and received 1 unit prbc during admission. She was advised to f/u with [employer] ( Dr. Lassiter) for uterine arterial embolization. She was discharged with iron twice a day, tranexamic acid x4 days and Zofran for nausea. #Syncope episode likely secondary to vaginal bleed vs ACS due to chest pain EKG and trops negative for ACS. CXR was negative for any cause of chest pain. Head Ct was negative for any acute cause. Her mental status improved spontaneously during admission. #Hypotension BP improved after oral intake and transfusion s/p D+C. #HLD Continued atorvastatin. #Gerd Continued omeprazole during inpatient. #Mental health Continued pristiq. Allergies: Coded Allergies: No Known Allergies (11/08/17) Significant Procedures: Surgery Date: 11/09/17 Name of Procedure: Dilation and curettage Pre-Operative Diagnosis: Abnormal uterine bleeding Post-Operative Diagnosis: Same Estimated Blood Loss: 50ml to 100ml Surgeon/Gameplay Programmer: sathish Lassiter MD Anesthesia: moderate sedation IV Fluids: Lactated Ringer's Urine Output: Straight cath 100 mL clear urine at the beginning of the procedure Specimens: EMC Complications: None Condition: Stable Operative Indication: 57-year-old, admitted for syncope episode, found to have heavy vaginal bleeding for 2 days. Operative/Procedure Note Note: The patient was taken to the operating room where moderate sedation anesthesia was obtained without difficulty. The patient was then examined under anesthesia was found to have a largely anteverted uterus. She was then placed in the dorsal lithotomy position and prepared and draped in the usual sterile fashion. A bivalve speculum was then placed in the patient's vagina and the anterior lip of the cervix grasped with the single-toothed tenaculum. The uterus was then gently sounded to 8 cm, the cervix was dilated to accommodate a small sized sharp curetting. A sharp curettage was then performed until a gritty texture was noted. There was minimal bleeding noted and the tenaculum removed with good hemostasis noted. All the instruments withdrawn from the patient's vagina. All instruments and laps counts were correct. tolerated the procedure well. The patient was then taken to the recovery room in stable condition. Pertinent Lab Results: EXAM TYPE: US - US-TRANSVAGINAL EXAMINATION: US PELVIS CLINICAL INFORMATION: Uterine fibroids. Menorrhagia COMPARISON: MRI of the pelvis from 02/06/2016 TECHNIQUE: Transabdominal and transvaginal examination was performed. FINDINGS: LMP: 6-8 weeks ago. The uterus is anteverted and is measured at 17.0 x 10.6 x 9.1 cm. Cervical length is measured at 3.7 cm. The endometrium is measured at 2.2 cm in thickness without documented hypervascularity. There are a number of uterine fibroids documented. There is a left-sided fundal fibroid measured at 4.7 x 4.6 x 4.0 cm. A second left-sided fibroid is measured at 2.5 x 2.4 x 2.3 cm. A third left-sided fibroid is measured at 3.0 x 3.1 x 2.9 cm. A fourth fibroid in the lower uterine region is measured at 7.0 x 5.2 x 5.2 cm. Scanning in both adnexa demonstrated no masses. Neither uterus is visualized. IMPRESSION: Numerous uterine fibroids. Endometrial thickening measuring up to 2.2 cm. This may reflect endometrial hyperplasia, neoplasia, or polyp. EXAM TYPE: CAT - CT HEAD WO IV CONTRAST EXAMINATION: CT HEAD WITHOUT CONTRAST CLINICAL INFORMATION: Mental status change. COMPARISON: None TECHNIQUE: Contiguous axial imaging was performed from the skull base to vertex without intravenous administration of contrast. DLP: 633 mGy-cm FINDINGS: There is no evidence of acute intracranial hemorrhage or territorial infarction. No abnormal mass effect or midline shift is seen. Waters to white matter differentiation is well preserved. No extra-axial fluid collections are identified. The ventricles are normal in size. There is no significant abnormal attenuation within the brain parenchyma. The osseous structures and soft tissues demonstrate no acute abnormalities. The mastoid air cells and visualized portions of the paranasal sinuses are well aerated. IMPRESSION: No acute intracranial pathology. No CT explanation for the patient's mental status change. Disposition Summary Disposition Principal Diagnosis: Acute blood loss anemia 2/2 Significant menorrhagia s/p D&C Additional Diagnosis: Syncope episode likely secondary to vaginal bleed vs ACS due to chest pain Hypotension Hx of HLD Hx of GERD Hx of Mental health disorder Discharge Disposition: home or self care Discharge Instructions General Discharge Information Code Status: Full Code Patient's Diet: Heart healthy Patient's Activity: As tolerated Follow-Up Instructions/Appts: Please follow up with Dr. Lassiter in 1 week. Please follow up with your PCP in 1 week. Medications at Discharge Discharge Medications: Continue taking these medications: Pantoprazole Sodium (Pantoprazole Sodium) 40 MG TABLET.DR 1 Tablet ORAL DAILY Qty = 90 Comments: Last Taken: 11/10/17 Time: 6:00 am Atorvastatin Calcium (Atorvastatin Calcium) 40 MG TABLET 1 Tablet ORAL DAILY Qty = 90 Comments: Last Taken: 11/09/17 Time: 4:45 pm Desvenlafaxine Succinate (Pristiq ER) 50 MG TAB.ER.24H 1 Tablet ORAL DAILY Qty = 30 Comments: Last Taken: 11/10/17 Time: 9:30 am Ranitidine (Ranitidine HCl) 150 MG TABLET 1 Tablet ORAL TWICE DAILY Qty = 60 Comments: did not receive in hospital Start taking the following new medications: Tranexamic Acid (Lysteda) 650 MG TABLET 2 Tablet ORAL THREE TIMES DAILY Qty = 24 No Refills Instructions: Please continue for 4 days. Comments: Last Taken: 11/10/17 Time: 2:00 PM Ondansetron (Zofran Odt) 4 MG TAB.RAPDIS 1 Tablet SUBLINGUAL THREE TIMES DAILY Qty = 15 No Refills Instructions: . Comments: Last Taken: 11/10/17 Time: 10:30am Docusate Sodium (Colace) 100 MG CAPSULE 1 Capsule ORAL TWICE DAILY Qty = 60 No Refills Comments: did not receive in hospital Ferrous Sulfate (Ferrous Sulfate) 325 MG (65 MG IRON) TABLET 1 Tablet ORAL TWICE DAILY Qty = 60 No Refills Comments: did not receive in hospital Copies To: Zachary ROMO,Joshua Attending MD Review Statement Documenting Attending: Elliot Diez MD Other Findings: The patient was seen with house staff on the day of discharge. Agree with the plan of care as outlined. Patient to begin on FeSO4 325 mg bid along with colace. OP follow-up for possible arterial ablation Rx of fibroids (by IR). Zofran for nausea secondary to Tranexamic Acid.
--- NOTE | 2017-11-10 12:00 | PN- OBGYN ---
Surgical Brief Attending Note Brief Attending Note: Pt is POD #2 vss afebrile S/P transfusion one unit PRBC for menorrhagia secondary to fibroid uterus. Pt states bleeding is now light flow and brown in color. Imp-fibroid uterus in a preimenipausal obese pt. responded to Tranexamic acid I have spoken to intervential radiologist who will contact pt regurding Uterine artery ablation as an out patient. Recommend discharge home on FeSO4 and Tranexamic acid
== END 2017-11-10 15:12 | DRG 517 ==
LOC: ERH 21:43 → ERHI 23:20 → CRI 23:20 → ENRESERV 11-09 00:30 → CRI 11-09 03:42 → 1NO 11-09 04:58 → CRI 11-09 10:30 → ENPENDDIS 11-10 11:28 → CRI 11-10 15:12
PROVIDERS: Internal Medicine; Internal Medicine Hematology & Oncology; Pediatrics
PROC: 0UDB7ZZ Extraction of Endometrium, Via Natural or Artificial Opening (ICD-10-PCS; principal; 2017-11-08)
PROC: 30233N1 Transfusion of Nonautologous Red Blood Cells into Peripheral Vein, Percutaneous Approach (ICD-10-PCS; 2017-11-09)
DX: N92.0 Excessive and frequent menstruation with regular cycle (principal); D62 Acute posthemorrhagic anemia; R55 Syncope and collapse; D25.9 Leiomyoma of uterus, unspecified; I95.9 Hypotension, unspecified; K21.9 Gastro-esophageal reflux disease without esophagitis; E78.5 Hyperlipidemia, unspecified; I10 Essential (primary) hypertension; K76.0 Fatty (change of) liver, not elsewhere classified; F41.9 Anxiety disorder, unspecified; F32.9 Major depressive disorder, single episode, unspecified; Z90.49 Acquired absence of other specified parts of digestive tract
CPT/HCPCS: CCU; ERO; 36415; 71045; 82436; 86920; 88305; 93005; 93010; J1644; J2210; J2405; J7040; P9016